=== PATIENT | male | born 2000 | race Caucasian/White ===

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

== ENCOUNTER 2018-08-10 10:08 | Emergency (ER) | payer OTHER ==
--- NOTE | 2018-08-10 11:01 | EDPHY ---
H & P Stated Complaint: Fall off longboard Time Seen by Provider: 08/10/18 10:54 HPI/ROS: CHIEF COMPLAINT: Back pain HISTORY OF PRESENT ILLNESS: The patient presents to the ED for evaluation of mid lumbar pain following a fall off a skateboard on . The patient denies any acute numbness or weakness. He denies any chest pain, abdominal pain or difficulty breathing. The patient has moderate pain which is worsened with movement. The patient denies additional traumatic injuries. He denies any hematuria or dysuria. REVIEW OF SYSTEMS: A comprehensive 10 point review of systems is otherwise negative aside from elements mentioned in the history of present illness. Source: Patient Exam Limitations: No limitations - Personal History Current Tetanus/Diphtheria Vaccine: Yes - Medical/Surgical History Hx Asthma: No Hx Chronic Respiratory Disease: No Hx Diabetes: No Hx Cardiac Disease: No Hx Renal Disease: No Hx Cirrhosis: No Hx Alcoholism: No Hx HIV/AIDS: No Hx Splenectomy or Spleen Trauma: No Other PMH: PMH: denies - Social History Smoking Status: Never smoked - Physical Exam Exam: General Appearance: Alert, no distress Head: Atraumatic Eyes: Pupils equal, round, reactive ENT, Mouth: No hemotympanum, no oral trauma Neck: Nontender, trachea midline Respiratory: No chest wall tender, subcutaneous air, lungs clear bilaterally Cardiovascular: Regular rate and rhythm Abdomen: Abdomen is soft and nontender, pelvis stable Skin: Superficial abrasions noted to left flank Back: Tenderness to palpation in the mid lumbar spine. Extremities: Nontender, full range of motion Neurological: A&Ox3, normal motor function, normal sensory exam Constitutional: Initial Vital Signs Temperature (C) 36.8 C 08/10/18 10:18 Heart Rate 56 L 08/10/18 10:18 Respiratory Rate 18 08/10/18 10:18 Blood Pressure 125/43 H 08/10/18 10:18 O2 Sat (%) 95 08/10/18 10:18 O2 Delivery Mode Room Air Allergies/Adverse Reactions: No Known Allergies Allergy (Unverified 08/10/18 10:22) Home Medications: Medication Instructions Recorded Cyclobenzaprine [Flexeril 10 MG 10 mg PO TID PRN #15 tab 08/10/18 (*)] Medical Decision Making - Diagnostics Imaging Results: Lumbar spine x-ray two view: Images reviewed by myself, impression: Negative for acute fracture. ED Course/Re-evaluation: The patient presents to the ED for evaluation of lumbar pain following a fall from his skateboard on . The patient is noted to be neurologically intact. He has a benign abdominal examination. His vital signs are stable. He did have some mild midline tenderness in his lumbar spine. He was taken for plain films of the lumbar spine which demonstrate no evidence of an acute fracture. The patient will be discharged home with a presumptive diagnosis of a myofascial contusion. The patient is advised to use Tylenol, ice and Advil for management of his symptoms. The patient is instructed to return to the ED for the development of any severe pain, acute numbness, acute weakness, bowel or bladder dysfunction. Differential Diagnosis: Differential diagnosis considered includes lumbar fracture, myofascial strain, disc herniation Departure - Departure Disposition: Home, Routine, Self-Care Clinical Impression: Lumbar spine strain Condition: Good Instructions: Low Back Strain (ED) Additional Instructions: 1. Take Ibuprofen or Motrin 600 mg by mouth three times a day. 2. Flexeril as needed for muscle relaxation 3. Return to the ED for markedly increasing pain, numbness, weakness or other concerns. 4. Your x-ray demonstrates no evidence of a fracture. Referrals: JAIME Maldonado,. [Clinic] - As per Instructions
[2018-08-10 12:33] VITALS: BP 118/69
== END 2018-08-10 12:33 | disposition home or self-care (01) ==
DX: S39.012A Strain of muscle, fascia and tendon of lower back, initial encounter (principal); V00.131A Fall from skateboard, initial encounter; Y93.51 Activity, roller skating (inline) and skateboarding; Y99.8 Other external cause status